=== PATIENT | male | born 1980 | race Two or more races ===

== ENCOUNTER 2022-01-11 05:30 | Day surgery (SDC) | payer OTHER ==
[~2022-01-11] VITALS: Ht 175.3 cm; Wt 106.6 kg
[2022-01-11] MEDS ORDERED: PERCOCET 5-3251 EACH PO (12:00)
== END 2022-01-11 13:45 | disposition home or self-care (01) ==
LOC: CIR.AMB 05:30
PROVIDERS: ATTEND Surgery
DX: N52.9 Male erectile dysfunction, unspecified (principal); N52.01 Erectile dysfunction due to arterial insufficiency; Z20.822 Contact with and (suspected) exposure to COVID-19; F17.210 Nicotine dependence, cigarettes, uncomplicated